=== PATIENT | male | born 1970 | race Caucasian/White ===

== ENCOUNTER 2017-02-17 21:50 | Emergency (ER) | payer BC, OTHER ==
[~2017-02-17] VITALS: Ht 188 cm; Wt 86.2 kg
[~2017-02-17 21:50] MED LIST: HYDR25CA PO; LEVO500T38 PO
[2017-02-17 22:20] VITALS: BP 159/71
[2017-02-17] MEDS ORDERED: FLUORESCEIN OPHTH TEST STRIP. OD ONE (22:30)
[2017-02-17] MEDS ORDERED: TETRACAINE 0.5% OPHTH SOLUTION 4ML BOTTLE. OD ONE (22:30)
[2017-02-17] MEDS ORDERED: EYE-STREAM OPHTH SOLUTION 120 ML BOTTLE. OD ONE (22:30)
--- NOTE | 2017-02-17 22:32 | PHYS DOC ---
Past Medical History Past Medical History: No Pertinent History, Testicular Torsion Past Surgical History: Other Additional Past Surgical Histo: for testicular torsion Alcohol Use: None Drug Use: None Adult General Chief Complaint Chief Complaint: EYE PROBLEMS HPI HPI Patient is a 46 year old male presents emergency department stating that he believes something flew into his right eye. He states that he was at lunch when this pain does developed. He states that he felt a sharp pain and then that went away and he had some goopy stuff in his eye. Patient denies use of glasses. 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 He denies any upper respiratory congestion. He does state his tetanus immunization is up-to-date. Review of Systems Review of Systems Constitutional: Denies fever or chills [] Eyes: Denies change in visual acuity, redness, or eye pain [] HENT: Denies nasal congestion or sore throat [] Respiratory: Denies cough or shortness of breath [] Cardiovascular: No additional information not addressed in HPI [] GI: Denies abdominal pain, nausea, vomiting, bloody stools or diarrhea [] : Denies dysuria or hematuria [] Musculoskeletal: Denies back pain or joint pain [] Integument: Denies rash or skin lesions [] Neurologic: Denies headache, focal weakness or sensory changes [] Endocrine: Denies polyuria or polydipsia [] Current Medications Current Medications Current Medications Medications (Trade) Dose Ordered Sig/[facility] Start Time Stop Time Status Last Admin Dose Admin Balanced Salt Solution (Eye-Stream) 120 ml 1X ONCE 02/17/17 22:30 02/17/17 22:31 DC 02/17/17 22:35 120 ML Fluorescein Sodium (Ful-Michelle) 1 strip 1X ONCE 02/17/17 22:30 02/17/17 22:31 DC 02/17/17 22:35 1 STRIP Tetracaine HCl (Tetracaine) 1 drop 1X ONCE 02/17/17 22:30 02/17/17 22:31 DC 02/17/17 22:35 1 DROP Allergies Allergies Allergies Coded Allergies Type Severity Reaction Last Updated Verified No Known Drug Allergies 06/14/16 No Physical Exam Physical Exam Constitutional: Well developed, well nourished, no acute distress, non-toxic appearance. [] HENT: Normocephalic, atraumatic, bilateral external ears normal, oropharynx moist, no oral exudates, nose normal. [] Eyes: PERRLA, EOMI, conjunctiva red with clear to yellow drainage noted Neck: Normal range of motion, no tenderness, supple, no stridor. [] Cardiovascular:Heart rate regular rhythm, no murmur [] Lungs & Thorax: Bilateral breath sounds clear to auscultation [] Skin: Warm, dry, no erythema, no rash. [] Back: No tenderness Extremities: No tenderness, no cyanosis, no clubbing, ROM intact, no edema. [] Neurologic: Alert and oriented X 3, normal motor function, normal sensory function, no focal deficits noted. [] Psychologic: Affect normal, judgement normal, mood normal. [] Current Patient Data Vital Signs Vital Signs Date Time Temp Pulse Resp B/P (MAP) Pulse Ox O2 Delivery O2 Flow Rate FiO2 02/17/17 22:20 98.0 89 16 97 Room Air 98.0 EKG EKG [] Radiology/Procedures Radiology/Procedures [] Course & Med Decision Making Course & Med Decision Making Pertinent Labs and Imaging studies reviewed. (See chart for details) Tetracaine was placed into the right eye. With fluorecin uptake noted between the 4 and 7:00 area. Patient was instructed to follow-up with ophthalmology in the next 24 hours. Patient will be placed on ofloxacin eyedrops to the right eye. He'll also be encouraged to take ibuprofen and Tylenol for pain and discomfort. He will be provided with a few hydrocodone's for severe pain and discomfort. Patient was also recommended to use warm moist packs to the eye to help with any drainage or discharge coming from the eye. Patient agrees with discharge instructions treatment regimens and follow-up recommendations. [] Dragon Disclaimer Dragon Disclaimer This electronic medical record was generated, in whole or in part, using a voice recognition dictation system. Departure Departure Impression: Primary Impression: Right corneal abrasion Disposition: 01 HOME, SELF-CARE Condition: STABLE Referrals: ENMANUEL LOPEZ MD (PCP) Kassie DEAN MD Patient Instructions: Eye - Corneal Abrasion, [id number] Additional Instructions: Activity as tolerated. Medication as prescribed. Hydrocodone will cause severe drowsiness do not take any be alert and oriented. Tylenol and ibuprofen may also be taken for pain and discomfort. Do not over use Tylenol as hydrocodone has Tylenol in the medication as well. Total of 4 g of Tylenol may be taken in a 24-hour period Warm moist packs to the eye to help relieve drainage and discharge Follow-up with ophthalmology in the next 24 hours. Return back to emergency department for signs and symptoms of become worse. Scripts Ofloxacin (OCUFLOX) 5 Ml Drops 1-2 DROP RIGHTEYE BID, #[address] in the right eye for the next 7 days Prov: NIXON TORRES APRN 02/17/17 Hydrocodone/Apap 5-325 (NORCO 5-325 TABLET) 1 Each Tablet 1 TAB PO PRN Q6HRS Y for PAIN, #4 TAB 0 Refills Prov: NIXON TORRES APRN 02/17/17 NIXON TORRES APRN February 17, 2017 22:32
[2017-02-17] MEDS ORDERED: HYDR-971 PO (22:51)
[2017-02-17] MEDS ORDERED: OFLO5DRO RIGHTEYE (22:51)
== END 2017-02-17 23:11 | disposition home or self-care (01) ==
LOC: ER 21:50
DX: S05.01XA Injury of conjunctiva and corneal abrasion without foreign body, right eye, initial encounter (principal); X58.XXXA Exposure to other specified factors, initial encounter; Y93.89 Activity, other specified; Y99.0 Civilian activity done for income or pay; Y92.89 Other specified places as the place of occurrence of the external cause
CPT/HCPCS: 99283